=== PATIENT | female | born 1990 | race Asian ===

== ENCOUNTER 2017-10-04 20:35 | Emergency (ER) | payer OTHER ==
--- NOTE | 2017-10-04 21:23 | ED Physician Documentation ---
History of Present Illness - Stated complaint Stated Complaint: RASH/SOA 16WK OB - Chief complaint Chief Complaint: Wound - History obtained from History obtained from: Patient - History of Present Illness Timing: How many days ago (3-4) Pain level max: 0 Pain level now: 0 - Additonal information Additional information: presents due to pruritic rash that started on abdomen and has subsequently spread to BUE, proximal BLE, chest and face. Rash started 3-4 days ago, the same day she flew to [place] from [place]. 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 Also topical hydrocortisone for rash Patient is approximately 16 weeks . Presents tonight because rash is spreading and pruritis has become more intense. She takes Claritin on a daily basis. 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 - Present Medications Home Medications: Ambulatory Orders Medication Instructions Recorded Confirmed Hydrocortisone 1% Oint 1 appful TOP BID 10/04/17 10/04/17 [Hydrocortisone] Loratadine [Claritin] 1 tab PO DAILY 10/04/17 10/04/17 predniSONE [Prednisone] 20 mg PO BID #7 tablet 10/04/17 - Allergies Allergies/Adverse Reactions: Allergies Allergy/AdvReac Type Severity Reaction Status Date / Time No Known Drug Allergies Allergy Verified 10/04/17 20:48 - Social History Does the pt smoke?: No Smoking Status: Never smoker Does the pt drink ETOH?: No Does the pt have substance abuse?: No - Immunizations Immunizations are current?: Yes - POLST Patient has POLST: No PD ED PE NORMAL - Vitals Vital signs reviewed: Yes - General General: Alert and oriented X 3, No acute distress, Well developed/nourished - Respiratory Respiratory: No respiratory distress, Clear bilaterally PD ED PE EXPANDED - Derm Derm: Rash, Papules (papules on abdominal wall, face (predominantly left-sided) , with few lesions noted on BUE (forearms) and no lesions on palms or between fingers) Results - Vitals Vitals: Vital Signs - 24 hr 10/04/17 10/04/17 20:43 22:13 Temperature 35.9 C L Heart Rate 80 80 Respiratory 16 14 Rate Blood Pressure 105/50 L 96/55 L O2 Saturation 100 99 Oxygen O2 Source Room air PD MEDICAL DECISION MAKING - ED course Complexity details: considered differential, d/w patient Departure - Departure Disposition: 01 Home, Self Care Clinical Impression: Rash and nonspecific skin eruption Condition: Good Instructions: ED Erythema Follow-Up: EVA BEDOYA [Primary Care Provider] - Prescriptions: predniSONE [Prednisone] 20 mg PO BID #7 tablet Forms: Activity restrictions Discharge Date/Time: 10/04/17 22:23
[2017-10-04] MEDS ORDERED: predniSONE 20 MG TABLET PO STA (22:02)
[2017-10-04 22:15] VITALS: BP 96/55
== END 2017-10-04 22:23 | disposition home or self-care (01) ==
LOC: ED 20:35
DX: O99.712 Diseases of the skin and subcutaneous tissue complicating pregnancy, second trimester (principal); R21 Rash and other nonspecific skin eruption; Z3A.16 16 weeks gestation of pregnancy
CPT/HCPCS: 99283; J7512

== ENCOUNTER 2018-07-04 09:53 | Day surgery (SDC) | payer OTHER ==
[2018-07-04 10:46] LABS: HCG UR QUAL NEGATIVE
[2018-07-04] MEDS ORDERED: LACTATED RINGERS 1,000 ML IV ONE (10:51)
[2018-07-04] MEDS ORDERED: fentaNYL 250 MCG/5 ML VIAL IVP ONE (12:14)
[2018-07-04] MEDS ORDERED: MIDAZOLAM 2 MG/2 ML VIAL IVP ONE (12:14)
[2018-07-04 12:47] VITALS: BP 95/61
== END 2018-07-04 09:54 | disposition home or self-care (01) ==
LOC: SDS 09:53
PROVIDERS: ATTEND Internal Medicine
PROC: 0DJD8ZZ Inspection of Lower Intestinal Tract, Via Natural or Artificial Opening Endoscopic (ICD-10-PCS; principal; 2018-07-04 11:00)
DX: K64.8 Other hemorrhoids (principal); R94.5 Abnormal results of liver function studies; K59.00 Constipation, unspecified
CPT/HCPCS: 45378; 81025; J3010; J7120